=== PATIENT | male | born 1965 | race Two or more races ===

== ENCOUNTER 2017-02-06 13:22 | Emergency (ER) | payer OTHER ==
[2017-02-06 13:49] LABS: BASOPHIL# 0.1 X10e3 (0-0.3); BASOPHIL% 0.7 % (0-2.5); EOSINOPHIL# 0.2 X10e3 (0-0.7); EOSINOPHIL% 1.8 % (0.0-7.0); HEMATOCRIT 46.8 % (38.0-50.0); HEMOGLOBIN 15.2 gm/dL (13.0-16.0); LYMPHOCYTE# 1.3 X10e3 (1.0-3.5); LYMPHOCYTE% 15.4 % (17.0-45.0); MEAN CELL VOLUME 89.3 FL (83-96); MEAN CORPUSCULAR HGB CONC 32.5 g/dL (30-36); MEAN PLATELET VOLUME 9.6 FL (6.5-11.5); MONOCYTE# 0.6 X10e3 (0-1.0); MONOCYTE% 7.5 % (3.0-12.0); NEUTROPHIL# 6.2 X10e3 (1.5-7.1); NEUTROPHIL% 74.6 % (40-75); PLATELET COUNT 192 X10e3 (140-420); RED BLOOD COUNT 5.23 X10e (3.90-5.60); RED CELL DISTRIBUTION WIDTH 16.4 % (11.0-15.5); WHITE BLOOD COUNT 8.3 X10e3 (4.0-10.5)
[2017-02-06 13:51] LABS: DIFF IND NO
[2017-02-06 14:14] LABS: ALBUMIN SERUM 4.3 g/dL (3.5-5.0); BILIRUBIN, DIRECT 0.3 mg/dL (0.0-0.2); BILIRUBIN,INDIRECT 0.6 mg/dL (0.0-0.9); BILIRUBIN,TOTAL 0.9 mg/dL (0.2-2.0); BUN/CREATININE RATIO 15.45; CALCIUM SERUM 9.6 mg/dL (8.4-10.2); CREATININE SERUM 1.1 mg/dL (0.6-1.4); GLOM FILT RATE Estimated 78.4 mL/min (>60); POTASSIUM 4.7 mmol/L (3.5-5.1); PROTEIN TOTAL SERUM 8.1 g/dL (6.0-8.3)
[2017-02-06 14:53] LABS: URINE SOURCE CLEAN CATCH
[2017-02-06 15:01] LABS: URINE APPEARANCE CLEAR; URINE BILIRUBIN NEG (NEG); URINE BLOOD NEG (NEG); URINE COLOR YELLOW; URINE GLUCOSE NEG (NEG); URINE KETONE TRACE (NEG); URINE LEUKOCYTE ESTERASE NEG (NEG); URINE NITRATE NEG (NEG); URINE PROTEIN NEG (NEG); URINE SPECIFIC GRAVITY 1.022 (1.003-1.035); URINE UROBILINOGEN 0.2 MG/DL (NEG)
[2017-02-06 15:08] LABS: CULTURE INDICATED? NO
[2017-03-23] MEDS ORDERED: KEFLEX500 M1 PO (09:34)
[2017-03-23] MEDS ORDERED: DELZICOL400 M2 PO (10:07)
== END 2017-02-06 16:14 | disposition home or self-care (01) ==
LOC: CED 13:22
DX: R10.9 Unspecified abdominal pain (principal); Z90.49 Acquired absence of other specified parts of digestive tract
CPT/HCPCS: 36415; 80048; 80076; 81003; 83690; 85025; 99284

== ENCOUNTER 2017-03-18 05:51 | Inpatient (IN) | payer OTHER ==
[~2017-03-18] VITALS: Ht 167.6 cm; Wt 77.1 kg
--- NOTE | ~2017-03-18 | EKG ---
PATIENT: KAREN BROWNE UNIT #: [id number] Ventricular Rate: 93 BPM Atrial Rate: 93 BPM P-R Interval: 144 ms QRS Duration: 86 ms Q-T Interval: 358 ms QTC Calculation(Bezet): 445 ms P [place]: 34 degrees Calculated R [place]: 53 degrees Calculated T [place]: 54 degrees Diagnosis Line: Normal sinus rhythm Diagnosis Line: Cannot rule out Inferior infarct , age Diagnosis Line: undetermined Diagnosis Line: Borderline ECG Diagnosis Line: No previous ECGs available Diagnosis Line: Confirmed by PATRICIA ELI MD ([id number]) on 03/18/2017 Diagnosis Line: 6:04:35 PM INTERPRETING MD: ALCIRA SNELL
--- NOTE | ~2017-03-18 | DS ---
Unit #: [id number] #: [id number] Patient: KAREN BROWNE [id number] [address] [address] [id number] I MR#: [id number] NAME: KAREN BROWNE ROOM: 219 Age: 51 Sex: M Admission Date: 03/18/2017 : 1965 Discharge Date: 03/20/2017 Attending Physician: Avinash Pichardo M.D. Primary Care Physician: Neymar Avila M.D. DISCHARGE SUMMARY PRIMARY DIAGNOSIS Chronic cholecystitis. SECONDARY DIAGNOSES 1. Crohn disease. 2. Elevated blood pressure, possibly secondary to abdominal pain. 3. Transaminitis, likely secondary to recent alcohol intoxication. 4. Alcohol abuse. 5. Gastroesophageal reflux disease. 6. Recent weight loss. HOSPITAL COURSE The patient was initially placed on observation status for abdominal pain with history of Crohn. He underwent HIDA scan which ultimately was found to be abnormal and suggestive of cholecystitis. Patient's abdominal pain improved and the patient was seen in consultation with Dr. Lindsay and changed to inpatient status to have surgical evaluation for possible cholecystectomy. Patient did appear to have chronic cholecystitis on surgical evaluation but due to OR scheduling would have had to remain in the hospital for another two days prior to getting his gallbladder removed, so Dr. Pena with surgery felt that the patient could be safely discharged home on oral Keflex for the next few days and return for an outpatient cholecystectomy on Sunday. Additionally, Dr. Lindsay has adjusted the patient's mesalamine dose from his previous home dose of 1200 mg three times a day down to 800 mg three times a day. DISCHARGE DISPOSITION To home. DISCHARGE STATUS Stable. DISCHARGE ACTIVITY Ad moira. DISCHARGE DIET Unrestricted. DISCHARGE FOLLOWUP Followup is with Dr. Pena with general surgery for outpatient cholecystectomy on Sunday. DISCHARGE MEDICATIONS 1. Mesalamine 800 mg p.o. t.i.d. Unit #: [id number] #: [id number] Patient: KAREN BROWNE 2. Keflex 500 mg p.o. t.i.d. Dictated by... Avinash Pichardo M.D. WSManuel/lily TD: 03/21/2017 11:09 JOB #: [id number] DISCHARGE SUMMARY Page 1 of 1 X Avinash Pichardo MD DISCHARGE SUMMARY
--- NOTE | ~2017-03-18 | CO ---
Unit #: [id number] #: [id number] Patient: KAREN BROWNE [id number] [address] [place], [place] [address] [id number] I MR#: [id number] NAME: KAREN BROWNE. ROOM: 219 Age: 51 Sex: M Admission Date: 03/18/2017 : 1965 Attending Physician: Avinash Pichardo M.D. Primary Care Physician: Neymar Vela Consultation Date: 03/20/2017 CONSULTATION REPORT BRIEF HISTORY The patient is a 51-year-old gentleman, who presents with a long history of chronic cholecystitis and alcohol abuse, who presents with acute abdominal pain. He describes this as upper abdominal pain. CT scan shows some thickened gallbladder wall and chronic changes of colitis. His workup consisted of a HIDA scan, which showed nonvisualization of the gallbladder. He became asymptomatic and had no abdominal pain on my evaluation. He was requesting a diet. PAST MEDICAL HISTORY He has a history of chronic colitis, gastroesophageal reflux disease. PAST SURGICAL HISTORY He has had an appendectomy. He has had recent endoscopy. SOCIAL HISTORY The patient drinks usually daily. No alcohol. FAMILY HISTORY Negative for GI malignancy. HOME MEDICATIONS None. ALLERGIES Tetracycline. REVIEW OF SYSTEMS No cardiopulmonary complaints at this time. Else, 10 systems reviewed and negative. PHYSICAL EXAMINATION GENERAL: He is awake, alert, appropriate, currently afebrile. HEENT: Unremarkable. NECK: Supple. No JVD. Trachea midline. LUNGS: Clear to auscultation. Bilateral breath sounds symmetric. CARDIOVASCULAR: Regular rate and rhythm. ABDOMEN: Soft, nontender, and nondistended. I palpate no masses. No hepatosplenomegaly. EXTREMITIES: No clubbing, cyanosis, or edema. DIAGNOSTIC STUDIES LABORATORY RESULTS: Show a normal white count. Chemistries show mild elevation of ALT and AST, but normal bilirubin. Unit #: [id number] #: [id number] Patient: KAREN BROWNE ASSESSMENT AND PLAN Chronic cholecystitis. PLAN Recommend outpatient cholecystectomy. Discussed risks and benefits in detail, and we will schedule. Dictated by... Tod Pena M.D. CAROLYN/alex TD: 03/20/2017 06:52 JOB #: [id number] CONSULTATION REPORT Page 1 of 1 X Tod Pena MD CONSULTATION REPORT
--- NOTE | ~2017-03-18 | CT2 ---
[facility] A Service of [facility] RADIOLOGY TEXT RESULTS PATIENT: KAREN BROWNE LOCATION: C2A : [birth year] UNIT #: [id number] AGE: [address]: Avinash Pichardo MD SEX: M ORDER DR: [id number] [facility] [address] [facility] [place], [place] [address] [id number] I MR#: [id number] #: [id number] NAME: KAREN BROWNE. : 1965 SEX: M STUDY DATE/TIME: 03/18/2017 UNIT: [facility] ROOM: 219 STUDY DESCRIPTION: CT Abd and Pelv W Cont Attending Physician: Mary Kidd M.D. Ordering Physician: Ashley Aceves M.D. Primary Care Physician: Neymar Vela MEDICAL IMAGING REPORT This report is preliminary unless electronic signature is present EXAM CT abdomen and pelvis with contrast INDICATION Right upper quadrant pain since 4 a.m. COMPARISON No comparison TECHNIQUE The patient was given 100 mL of Isovue 370 and axial 5.0 mm images were obtained through the abdomen and pelvis. Sagittal and coronal reconstructions were generated. This CT exam was performed with one or more of the following radiation dose reduction techniques: automatic exposure control, adjustment of mA and/or kV according to patient size, and iterative reconstruction. FINDINGS The lung bases are clear. The liver, spleen, pancreas, adrenal glands and right kidney are normal. The left kidney is absent. The gallbladder appears to have mild wall thickening and is slightly distended. No stones are identified. The aorta is normal in size and there is no adenopathy. There is prominent submucosal fat throughout the transverse colon and left colon and there is mild mucosal enhancement in the transverse colon. There is no surrounding inflammation. The terminal appears normal. The small bowel appears normal. The bladder and prostate gland are normal. IMPRESSION [facility] A Service of [facility] RADIOLOGY TEXT RESULTS PATIENT: KAREN BROWNE LOCATION: C2A : 69 UNIT #: [id number] AGE: [address]: Avinash Pichardo MD SEX: M ORDER DR: 1. The gallbladder is distended and appears to have mild wall thickening. No stones are identified but the findings and history suggest cholecystitis. 2. The colon is abnormal. There is prominent fat in the wall and in the transverse colon region there is some mucosal enhancement. The findings suggest some type of chronic condition such as prior colitis or irritable bowel syndrome. There is no evidence of acute inflammation. Small bowel appears normal. Dictated by... Gene Martinez M.D. THIS IS AN ELECTRONICALLY VERIFIED REPORT Gene Martinez M.D. at 03/19/2017 7:07 AM PRINCESS/lynn TD: 03/18/2017 11:01 JOB #: [id number] MEDICAL IMAGING REPORT Page 1 of 1 COPY
--- NOTE | ~2017-03-18 | HP ---
Unit #: [id number] #: [id number] Patient: KAREN BROWNE [id number] [id number] [facility]. [place], [place] [address] [id number] I MR#: [id number] NAME: KAREN BROWNE. ROOM: 219 Age: 51 Sex: M Admission Date: 03/18/2017 : 1965 Attending Physician: Mary Kidd M.D. Primary Care Physician: Neymar Avila M.D. HISTORY AND PHYSICAL CHIEF COMPLAINT Abdominal pain. HISTORY OF PRESENT ILLNESS The patient is a 51-year-old male with a past medical history of chronic colitis who presented to the emergency department for evaluation of the above. The patient states that he experienced the sudden onset of abdominal pain around 1 o'clock this morning. He states that the pain is in the lower abdomen. He describes it as "very strong" and "burning." There are no exacerbating or alleviating factors. He has had more than 10 bouts of nonbloody emesis within the past 24 hours. He denies any diarrhea, no urinary symptoms, and no fever. His last bowel movement was within the past 24 hours and normal. He has had two other episodes over the past couple of months. He reports a 13-pound weight loss over the past two months. He has had EGD and colonoscopy in the past in [place] (no records). In the emergency department, initial pulse and blood pressure were 88 and 187/131, respectively. CT of the abdomen and pelvis was done and showed distended gallbladder with thickened welch and abnormal colon with chronic changes. He is being admitted to [facility] for evaluation and further treatment. PAST MEDICAL HISTORY 1. "Chronic colitis." 2. GERD. PAST SURGICAL HISTORY 1. EGD and colonoscopy. 2. Appendectomy. SOCIAL HISTORY The patient drinks most days. His last drink was yesterday and consisted of four to five beers. He denies tobacco use. FAMILY HISTORY Notable for his mother having hypertension and his dad had "liver problems." ALLERGIES Tetracycline. HOME MEDICATIONS Unit #: [id number] #: [id number] Patient: KAREN BROWNE None. REVIEW OF SYSTEMS A complete review of systems is negative except as indicated in the HPI. PHYSICAL EXAMINATION VITAL SIGNS: Temperature is 97.2, pulse 88, respirations 20, blood pressure 187/131, most recently 133/96, and oxygen saturation 100% on room air. GENERAL: Patient is awake, alert, and in no acute distress. HEENT: Head is atraumatic. Mucous membranes are moist. NECK: Supple. Trachea is midline. CARDIOVASCULAR: Regular rate and rhythm. LUNGS: Clear to auscultation bilaterally with no increased work of breathing. ABDOMEN: Soft. He is tender to palpation in the lower quadrants bilaterally. He has a well-healed linear scar in the lower abdomen. Bowel sounds are present in all four quadrants. EXTREMITIES: Nontender with no pedal edema. NEUROLOGIC: Patient is awake and alert. He follows commands. PSYCHIATRIC: Mood and affect are normal. Patient is cooperative. SKIN: Skin of examined areas is warm and dry. DIAGNOSTIC STUDIES LABORATORY: Complete blood count is essentially normal. Lactic acid is 2.1. Comprehensive metabolic panel notable for glucose of 145, BUN and creatinine 12 and 1.4, respectively, AST and ALT are 62 and 110, respectively, and alkaline phosphatase 147. Lipase is 32. Alcohol level is 121. Urinalysis is essentially negative. Urine toxicology screen is negative. Troponin is less than 0.03. CK is 205. Alcohol level is 121. IMAGING: CT of the abdomen and pelvis shows distended gallbladder with thickened welch and abnormal colon with chronic changes. CARDIOLOGY: EKG shows normal sinus rhythm with a rate of 93 beats per minute. ASSESSMENT The patient is a 51-year-old male with: 1. Abdominal pain. CT shows a thickened gallbladder wall. 2. Transaminitis. 3. Alcohol abuse. 4. Gastroesophageal reflux disease. 5. Weight loss, 13 pounds over the past two months. 6. "Chronic colitis." PLAN 1. Admit to med/surg for observation. 2. P.r.n. Dilaudid. 3. P.r.n. Zofran. 4. Alcohol withdrawal protocol. 5. HIDA scan. 6. Protonix. 7. SCDs. 8. Repeat labs in the morning. 9. Additional workup and consultants based on above. 1. Unit #: [id number] #: [id number] Patient: KAREN BROWNE Dictated by Zenaida Osullivan/luis TD: 03/18/2017 16:08 JOB #: [id number] HISTORY AND PHYSICAL Page 1 of 1 X Mary Kidd MD HISTORY AND PHYSICAL
--- NOTE | ~2017-03-18 | NM21 ---
[facility] A Service of [facility] RADIOLOGY TEXT RESULTS PATIENT: KAREN BROWNE LOCATION: [facility] : [birth year] UNIT #: [id number] AGE: [address]: Avinash Pichardo MD SEX: M ORDER DR: [id number] [facility] [place] [facility]. [place], [place] [address] [id number] I MR#: [id number] Acc #: [id number] NAME: KAREN BROWNE. : 1965 SEX: M STUDY DATE/TIME: 03/19/2017 10:27 UNIT: C2 ROOM: 219 STUDY DESCRIPTION: NM Hepatobiliary W GB Attending Physician: Avinash Pichardo M.D. Ordering Physician: Mary Kidd M.D. Primary Care Physician: Neymar Avila M.D. MEDICAL IMAGING REPORT This report is preliminary unless electronic signature is present EXAMINATION HIDA scan. DATE 03/19/2017 HISTORY Abdominal pain for 2 days with nausea, vomiting and gallbladder distension and mild wall thickening on CT. COMPARISON CT abdomen and pelvis with contrast 03/18/2017. FINDINGS Following the intravenous administration of 5.27 mCi technetium 99m Choletec, anterior planar images were obtained of the abdomen through 2 hours. Normal radiopharmaceutical uptake is demonstrated throughout the liver parenchyma. There is clearance of radiopharmaceutical into the small bowel in the course of the examination, indicating patency of the common bile duct. However, the gallbladder is not visualized within 2 hours, suggesting features of acute or chronic cholecystitis. IMPRESSION Scintigraphic features indicative of acute or chronic cholecystitis. Nonvisualization of the gallbladder at 2 hours. Dictated by... Kristie Louis M.D. THIS IS AN ELECTRONICALLY VERIFIED REPORT Kristie Louis M.D. at 03/22/2017 8:52 AM [facility] A Service of [facility] RADIOLOGY TEXT RESULTS PATIENT: KAREN BROWNE LOCATION: A 219-01 : [birth year] UNIT #: [id number] AGE: [address]: Avinash Pichardo MD SEX: M ORDER DR: TD: 03/19/2017 21:45 JOB #: [id number] MEDICAL IMAGING REPORT Page 1 of 1 COPY
--- NOTE | ~2017-03-18 | CO ---
Unit #: [id number] #: [id number] Patient: KARNE BRONWE [id number] [place], [place] [address] [id number] I MR#: [id number] NAME: KAREN BROWNE. ROOM: 219 Age: 51 Sex: M Admission Date: 03/18/2017 : 1965 Attending Physician: Avinash Pichardo M.D. Primary Care Physician: Neymar Avila M.D. Consultation Date: 03/19/2017 CONSULTATION REPORT ADDITIONAL ATTENDING PHYSICIAN Aivnash Pichardo M.D. PRIMARY CARE PHYSICIAN Neymar Avila M.D. REASON FOR CONSULTATION Colitis on the CAT scan. HISTORY OF PRESENT ILLNESS Mr. Browne is a very pleasant 51-year-old gentleman of [place] origin, I know him and his family for few years and in fact, the patient has had presented with moderately severe diffuse ulcerative pancolitis and has been well controlled on Delzicol in a dose of 2.4 g a day. Over the past month, he has had at least 2 or 3 distinct episodes in which he had severe upper abdominal pain along with nausea, vomiting, inability to retain any meals. The pain lasted for several hours to a day. On two of these occasions, he ended up coming to the emergency room and on the latter of the second occasion he has been admitted. The patient has undergone an ultrasound of the right upper quadrant and did not show any stones, but showed some thickening and HIDA scan that is consistent with cholecystitis. It is noteworthy, that his colitis is in remission. There being no history of diarrhea, bleeding, or weight loss. In fact, his appetite has been excellent in between these episodes of biliary, but seemed like upper abdominal biliary pain. PAST MEDICAL HISTORY Significant for history of ulcerative colitis, gastroesophageal reflux. PAST SURGICAL HISTORY Included appendectomy. MEDICATIONS At home include Delzicol. ALLERGIES He is allergic to tetracyclines. FAMILY HISTORY Significant for mother having hypertension. Father having similar problems. There is no family history of colon, pancreatic cancer, or liver disease. SOCIAL HISTORY Unit #: [id number] #: [id number] Patient: KAREN BROWNE The patient drinks on most days and does not smoke. 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 REVIEW OF SYSTEMS Detailed review of organ systems does not reveal any recent weight loss. No history of fever, chills, or rigors. No history of headache, seizures, chest pain, or syncope. No history of cough, expectoration, or hemoptysis. No history of dysuria, hematuria, or pyuria. No history of focal seizures or extremity weakness. PHYSICAL EXAMINATION GENERAL: He is alert and oriented, comfortable and well nourished. In fact, at time of this assessment, the patient was eating a substantial meal consisting of hamburger and Czech fries. VITAL SIGNS: Stable with a temperature of 98.1, pulse is 71 per minute, respiration 20 per minute, blood pressure is 136/90. He weighs 169 pounds which is close to his baseline weight. Actually, his baseline weight recorded in January was about 197 pounds. HEENT: He has no pallor, icterus, lymphadenopathy, or peripheral edema. CARDIOVASCULAR: Normal heart sounds. No murmurs. LUNGS: Auscultation over the lungs reveals normal breath sounds. Good air entry. ABDOMEN: Soft, nontender. Liver and spleen are not palpable. Bowel sounds normal. DIAGNOSTIC STUDIES LABORATORY RESULTS: Significant for completely normal CBC and serum chemistry shows normal BUN, creatinine, and electrolytes. Albumin of 3.3, baseline albumin is 4.3. In addition, the patient has normal bilirubin. His peak AST, ALT, alkaline phosphatase of 62, 110, and 147 and these showing a declining trend. Amylase and lipase was normal. IMAGING STUDIES: An ultrasound of the gallbladder was done towards the end of last year and showed no stones or pericholecystic fluid, but slightly thickened gallbladder wall. The patient has had a CT scan of the abdomen and pelvis yesterday and the latter shows essentially the same findings except for some distention of gallbladder. A HIDA scan done today suggests nonvisualization of the gallbladder within 2 hours suggesting acute chronic cholecystitis. The CT scan also showed chronic changes of chronicity from colitis in the colon. CLINICAL IMPRESSION The patient does seem to have intermittent and episodic severe and intense upper abdominal pain which are most likely a biliary pain from chronic cholecystitis. Does need a laparoscopic cholecystectomy and a surgical consult is in order. His ulcerative colitis however is in remission and no intervention is indicated from that standpoint. I would suggest to restart his Delzicol dose of 800 mg p.o. t.i.d. 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 Thank you very much for asking me to see this pleasant gentleman. I appreciate the consult. Dictated by... Zenaida Ruiz/alex Unit #: [id number] #: [id number] Patient: KAREN BROWNE TD: 03/20/2017 06:20 JOB #: [id number] Mary Kidd M.D. CONSULTATION REPORT Page 1 of 1 X Alfredito Lindsay MD X CONSULTATION REPORT
[2017-03-18 07:09] LABS: BASOPHIL# 0.1 X10e3 (0-0.3); BASOPHIL% 0.8 % (0-2.5); EOSINOPHIL# 0.2 X10e3 (0-0.7); EOSINOPHIL% 2.6 % (0.0-7.0); HEMATOCRIT 47.4 % (38.0-50.0); HEMOGLOBIN 15.9 gm/dL (13.0-16.0); LYMPHOCYTE# 1.5 X10e3 (1.0-3.5); LYMPHOCYTE% 19.5 % (17.0-45.0); MEAN CELL VOLUME 88.6 FL (83-96); MEAN CORPUSCULAR HEMOGLOBIN 29.7 PG (28-34); MEAN CORPUSCULAR HGB CONC 33.5 g/dL (30-36); MEAN PLATELET VOLUME 9.8 FL (6.5-11.5); MONOCYTE# 0.6 X10e3 (0-1.0); MONOCYTE% 8.2 % (3.0-12.0); NEUTROPHIL# 5.2 X10e3 (1.5-7.1); NEUTROPHIL% 68.9 % (40-75); PLATELET COUNT 221 X10e3 (140-420); RED BLOOD COUNT 5.35 X10e (3.90-5.60); WHITE BLOOD COUNT 7.6 X10e3 (4.0-10.5)
[2017-03-18 07:10] LABS: DIFF IND NO
[2017-03-18 07:38] LABS: ALBUMIN SERUM 4.4 g/dL (3.5-5.0); BILIRUBIN, DIRECT 0.1 mg/dL (0.0-0.2); BILIRUBIN,INDIRECT 0.5 mg/dL (0.0-0.9); BILIRUBIN,TOTAL 0.6 mg/dL (0.2-2.0); BUN/CREATININE RATIO 8.57; CALCIUM SERUM 8.9 mg/dL (8.4-10.2); CREATININE SERUM 1.4 mg/dL (0.6-1.4); GLOM FILT RATE Estimated 58.6 mL/min (>60); POTASSIUM 3.9 mmol/L (3.5-5.1); PROTEIN TOTAL SERUM 8.1 g/dL (6.0-8.3)
[2017-03-18 08:36] LABS: URINE SOURCE CLEAN CATCH
[2017-03-18 08:45] LABS: URINE APPEARANCE CLEAR; URINE BILIRUBIN NEG (NEG); URINE BLOOD NEG (NEG); URINE COLOR YELLOW; URINE GLUCOSE NEG (NEG); URINE KETONE NEG (NEG); URINE LEUKOCYTE ESTERASE NEG (NEG); URINE NITRATE NEG (NEG); URINE PH 6.5 (5-8); URINE PROTEIN NEG (NEG); URINE SPECIFIC GRAVITY 1.024 (1.003-1.035); URINE UROBILINOGEN 0.2 MG/DL (NEG)
[2017-03-18 08:48] LABS: CULTURE INDICATED? NO
[2017-03-18 08:59] LABS: AMPHETAMINE NEG (NEG); BARBITURATES NEG (NEG); BENZODIAZEPINES NEG (NEG); COCAINE NEG (NEG); MARIJUANA NEG (NEG); OPIATES NEG (NEG); TRICYCLIC ANTIDEPRESSANTS NEG (NEG); U METHADONE NEG (NEG)
[2017-03-18 10:37] LABS: %MB 1.9 % (0.0-4.0); MB 3.8 ng/ml
[2017-03-18 17:00] LABS: %MB 1.6 % (0.0-4.0); MB 2.8 ng/ml
[2017-03-18 23:29] LABS: %MB 1.6 % (0.0-4.0); MB 2.4 ng/ml
[2017-03-19 05:10] LABS: HEMATOCRIT 42.2 % (38.0-50.0); HEMOGLOBIN 14.2 gm/dL (13.0-16.0); MEAN CELL VOLUME 88.7 FL (83-96); MEAN CORPUSCULAR HEMOGLOBIN 29.8 PG (28-34); MEAN CORPUSCULAR HGB CONC 33.6 g/dL (30-36); MEAN PLATELET VOLUME 9.7 FL (6.5-11.5); RED BLOOD COUNT 4.76 X10e (3.90-5.60); WHITE BLOOD COUNT 7.7 X10e3 (4.0-10.5)
[2017-03-19 07:12] LABS: ALBUMIN SERUM 3.3 g/dL (3.5-5.0); BILIRUBIN,TOTAL 0.6 mg/dL (0.2-2.0); BUN/CREATININE RATIO 8.46; CALCIUM SERUM 8.5 mg/dL (8.4-10.2); CREATININE SERUM 1.3 mg/dL (0.6-1.4); GLOM FILT RATE Estimated 64.1 mL/min (>60); POTASSIUM 4.1 mmol/L (3.5-5.1)
[2017-03-23] MEDS ORDERED: KEFLEX500 M1 PO (09:34)
[2017-03-23] MEDS ORDERED: DELZICOL400 M2 PO (10:07)
== END 2017-03-20 09:40 | disposition home or self-care (01) | DRG 445 ==
LOC: CED 05:51 → CEDOF 09:15 → C2A 09:15 → CEDOF 09:39 → CED 09:39 → CEDOF 13:16 → C2A 13:16
PROVIDERS: Emergency Medicine; Family Medicine
DX: K81.1 Chronic cholecystitis (principal); K50.90 Crohn's disease, unspecified, without complications; R03.0 Elevated blood-pressure reading, without diagnosis of hypertension; R74.0 Nonspecific elevation of levels of transaminase and lactic acid dehydrogenase [LDH]; F10.10 Alcohol abuse, uncomplicated; Y90.6 Blood alcohol level of 120-199 mg/100 ml; K21.9 Gastro-esophageal reflux disease without esophagitis; R63.4 Abnormal weight loss; Z88.8 Allergy status to other drugs, medicaments and biological substances; Z82.49 Family history of ischemic heart disease and other diseases of the circulatory system
CPT/HCPCS: 36415; 74177; 78226; 80048; 80053; 80076; 80307; 81003; 82550; 82553; 83605; 83690; 84484; 85025; 85027; 93005; 96361; 96374; 96375; 99285; A9537; C9113; G0480; J1170; J2405; J3411; J3475; Q9967

== ENCOUNTER → 2017-03-23 | Day surgery (SDC) | payer OTHER ==
[~2017-03-23] MED LIST: DELZICOL400 M2 PO; KEFLEX500 M1 PO
--- NOTE | ~2017-03-23 | OR ---
Unit #: [id number] #: [id number] Patient: KAREN BROWNE [id number] [address] [address] [id number] MR#: [id number] NAME: KAREN BROWNE. ROOM: Date of Procedure: 03/23/2017 Admission Date: 03/23/2017 Surgeon: Tod Pena M.D. : 1965 Attending Physician: Tod Pena M.D. Primary Care Physician: Neymar Vela OPERATIVE REPORT PREOPERATIVE DIAGNOSIS Cholecystitis. POSTOPERATIVE DIAGNOSIS Cholecystitis. PROCEDURE PERFORMED Laparoscopic cholecystectomy. ASSISTANT Robin Sanchez M.D. ANESTHESIA General anesthesia. ESTIMATED BLOOD LOSS Minimal. IV FLUIDS 800 crystalloid. COMPLICATIONS None. INDICATIONS FOR PROCEDURE The patient is a 51-year-old gentleman with what appears to be cholecystitis. He presents for laparoscopic cholecystectomy. DESCRIPTION OF PROCEDURE The patient was taken to the operating theater and placed in supine position. General anesthesia was induced. The abdomen was prepped and draped. A 5-mm Optiview trocar was placed in the right upper quadrant without difficulty. The abdomen was insufflated to 15 mmHg with CO2. Under direct vision, I placed a subxiphoid 10 mm, right lateral 5 mm, umbilical 5 mm. General inspection of the abdomen revealed acute cholecystitis with distended thickened gallbladder. This was retracted up over the liver. We dissected the neck of the gallbladder and identified the cystic duct. Its junction with the gallbladder was confirmed. It was thus skeletonized, doubly hemoclipped, and divided. The cystic artery laid immediately posterior. This was skeletonized, doubly hemoclipped, and divided. The gallbladder was removed from the gallbladder bed with Bovie electrocautery and delivered via the subxiphoid port. Hemostasis Unit #: [id number] #: [id number] Patient: KAREN BROWNE was adequate. I removed the ports under direct vision with no evidence of abdominal hemorrhage. The fascia was closed with 0 Vicryl and skin with 4-0 Vicryl. The patient tolerated the procedure well and sent to recovery room in good condition. Dictated by... Zenaida Zamora/alex TD: 03/23/2017 16:42 JOB #: [id number] OPERATIVE REPORT Page 1 of 1 X Tod Pena MD PROCEDURE OPERATIVE NOTE
== END | disposition home or self-care (01) ==
LOC: CSUR 08:31
DX: K81.2 Acute cholecystitis with chronic cholecystitis (principal); K21.9 Gastro-esophageal reflux disease without esophagitis; F17.210 Nicotine dependence, cigarettes, uncomplicated; Z88.1 Allergy status to other antibiotic agents; Z98.890 Other specified postprocedural states
CPT/HCPCS: 88304; J0330; J0690; J1100; J1644; J1885; J2250; J2405; J2710; J3010